=== PATIENT | female | born 1970 | race Caucasian/White ===

== ENCOUNTER 2018-01-09 20:34 | Emergency (ER) | payer MEDICAID ==
[~2018-01-09] VITALS: Ht 167.6 cm; Wt 107.0 kg
[2018-01-09 21:24] VITALS: Ht 167.6 cm; Wt 107.0 kg
[2018-01-09 23:28] LABS: CALCIUM 9.5 mg/dL (8.5-10.1); CARBON DIOXIDE 29.2 mmol/L (21-32); CREATININE SERUM 0.8 mg/dL (0.6-1.0); GFR1 > 60 mL/min; GLUCOSE SERUM 133 mg/dL (74-106); POTASSIUM SERUM 4.2 mmol/L (3.5-5.1); SODIUM SERUM 142 mmol/L (136-145)
[2018-01-09 23:29] LABS: BASOPHIL % 0.4 % (0-2); PLATELET COUNT 359 x10^3mcL (130-400)
[2018-01-09 23:30] LABS: RED CELL DISTRIBUTION WIDTH 14.6 % (11.5-14.5)
[2018-01-09 23:39] LABS: CHLORIDE SERUM 104 mmol/L (98-107)
[2018-01-10 00:58] VITALS: BP 115/72
== END 2018-01-10 00:58 | disposition home or self-care (01) ==
LOC: ED 20:34
PROVIDERS: Emergency Medicine
DX: R55 Syncope and collapse (principal); S09.90XA Unspecified injury of head, initial encounter; M25.521 Pain in right elbow; N39.0 Urinary tract infection, site not specified; J45.909 Unspecified asthma, uncomplicated; E11.9 Type 2 diabetes mellitus without complications; E03.9 Hypothyroidism, unspecified; Z88.8 Allergy status to other drugs, medicaments and biological substances; X58.XXXA Exposure to other specified factors, initial encounter; Y93.89 Activity, other specified; Y92.89 Other specified places as the place of occurrence of the external cause; Y99.8 Other external cause status
CPT/HCPCS: 36415

== ENCOUNTER 2018-09-21 17:11 | Emergency (ER) | payer SELFPAY ==
[~2018-09-21] VITALS: Ht 170.2 cm; Wt 108.4 kg
[2018-09-21 17:31] VITALS: Ht 170.2 cm; Wt 108.4 kg
[2018-09-21 18:53] VITALS: BP 144/97
== END 2018-09-21 18:53 | disposition home or self-care (01) ==
LOC: ED 17:11
DX: L03.313 Cellulitis of chest wall (principal); L91.8 Other hypertrophic disorders of the skin; J45.909 Unspecified asthma, uncomplicated; E11.9 Type 2 diabetes mellitus without complications; E03.9 Hypothyroidism, unspecified; Z88.8 Allergy status to other drugs, medicaments and biological substances

== ENCOUNTER 2018-12-05 00:01 | Inpatient (IN) | payer OTHER ==
[~2018-12-05] VITALS: Ht 165.1 cm; Wt 110.4 kg
[2018-12-05 00:22] VITALS: Ht 165.1 cm; Wt 110.4 kg
[2018-12-05 01:01] LABS: CALCIUM 8.3 mg/dL (8.5-10.1); CARBON DIOXIDE 29.4 mmol/L (21-32); CHLORIDE SERUM 104 mmol/L (98-107); CREATININE SERUM 0.8 mg/dL (0.6-1.0); GFR1 > 60 mL/min; GLUCOSE SERUM 184 mg/dL (74-106); POTASSIUM SERUM 3.4 mmol/L (3.5-5.1); SODIUM SERUM 139 mmol/L (136-145)
[2018-12-05 01:04] LABS: BASOPHIL % 0.7 % (0-2); PLATELET COUNT 297 x10^3mcL (130-400)
[2018-12-05 01:06] LABS: ALKALINE PHOSPHATASE 70 U/L (46-116); ALT/SGPT 43 U/L (14-59); AST/SGOT 13 U/L (15-37); BILIRUBIN TOTAL 0.11 mg/dL (0.20-1.00); TOTAL PROTEIN, SERUM 6.7 g/dL (6.4-8.2)
[2018-12-05 01:08] LABS: RED CELL DISTRIBUTION WIDTH 14.8 % (11.5-14.5)
[2018-12-05 01:09] LABS: ALBUMIN 2.9 g/dL (3.4-5.0)
[2018-12-05 01:13] LABS: T3 TOTAL 1.43 ng/mL
[2018-12-05 01:18] LABS: FREE T4 1.12 ng/dL (0.76-1.46); FREE THYROXINE INDEX 3.4 ug/dL (1.4-4.5)
[2018-12-05 06:35] VITALS: BP 121/58
[2018-12-05 09:30] VITALS: BP 112/46
[2018-12-05 13:00] VITALS: BP 117/57
[2018-12-05 17:42] LABS: BASOPHIL % 0.7 % (0-2); PLATELET COUNT 312 x10^3mcL (130-400)
[2018-12-05 17:45] LABS: RED CELL DISTRIBUTION WIDTH 15.3 % (11.5-14.5)
[2018-12-05 17:51] VITALS: BP 112/46
== END 2018-12-05 19:05 | disposition home or self-care (01) | DRG 761 ==
LOC: ED 00:01 → MU 05:24
PROVIDERS: Specialist; ADMIT Internal Medicine
DX: D25.9 Leiomyoma of uterus, unspecified (principal); N93.8 Other specified abnormal uterine and vaginal bleeding; J45.909 Unspecified asthma, uncomplicated; E03.9 Hypothyroidism, unspecified; D64.9 Anemia, unspecified; Z88.8 Allergy status to other drugs, medicaments and biological substances; E11.9 Type 2 diabetes mellitus without complications; E66.9 Obesity, unspecified
CPT/HCPCS: 84439; J7030; J7050; P9016

== ENCOUNTER 2019-02-26 13:39 | Emergency (ER) | payer OTHER ==
[~2019-02-26] VITALS: Ht 167.6 cm; Wt 109.3 kg
[2019-02-26 14:26] VITALS: Ht 167.6 cm; Wt 109.3 kg
[2019-02-26 18:04] VITALS: BP 138/74
== END 2019-02-26 18:04 | disposition home or self-care (01) ==
LOC: ED 13:39
DX: J02.9 Acute pharyngitis, unspecified (principal); E11.9 Type 2 diabetes mellitus without complications; D64.9 Anemia, unspecified; E03.9 Hypothyroidism, unspecified; Z98.890 Other specified postprocedural states; Z88.8 Allergy status to other drugs, medicaments and biological substances

== ENCOUNTER 2019-08-26 08:13 | Emergency (ER) | payer OTHER ==
[~2019-08-26] VITALS: Ht 170.2 cm; Wt 104.3 kg
[2019-08-26 08:16] VITALS: Ht 170.2 cm; Wt 104.3 kg
[2019-08-26 08:51] LABS: BASOPHIL % 0.9 % (0-2)
[2019-08-26 09:03] LABS: CALCIUM 8.8 mg/dL (8.5-10.1); CARBON DIOXIDE 26.2 mmol/L (21-32); CHLORIDE SERUM 105 mmol/L (98-107); CREATININE SERUM 0.7 mg/dL (0.6-1.0); GFR1 > 60 mL/min; GLUCOSE SERUM 122 mg/dL (74-106); POTASSIUM SERUM 4.1 mmol/L (3.5-5.1); SODIUM SERUM 139 mmol/L (136-145)
[2019-08-26 09:04] LABS: PLATELET COUNT 305 x10^3mcL (130-400); RED CELL DISTRIBUTION WIDTH 14.4 % (11.5-14.5)
[2019-08-26 09:08] LABS: ALBUMIN 3.5 g/dL (3.4-5.0); ALKALINE PHOSPHATASE 84 U/L (46-116); ALT/SGPT 23 U/L (14-59); AST/SGOT 16 U/L (15-37); BILIRUBIN TOTAL 0.3 mg/dL (0.20-1.00); CHOLESTEROL 199 mg/dL (<200); PHOSPHOROUS 3.5 mg/dL (2.5-4.9); TOTAL PROTEIN, SERUM 7.9 g/dL (6.4-8.2); URIC ACID 5.2 mg/dL (2.6-6.0)
[2019-08-26 09:09] LABS: HDL CHOLESTEROL 34 mg/dL (40-60)
[2019-08-26 11:00] VITALS: BP 121/60
[2019-08-26 13:16] LABS: rbc morphology (normal/abnorm) ABNORMAL (NORMAL)
== END 2019-08-26 11:00 | disposition home or self-care (01) ==
LOC: ED 08:13
PROVIDERS: Emergency Medicine
DX: R07.89 Other chest pain (principal); F41.9 Anxiety disorder, unspecified; J45.909 Unspecified asthma, uncomplicated; E11.9 Type 2 diabetes mellitus without complications; E03.9 Hypothyroidism, unspecified; Z88.8 Allergy status to other drugs, medicaments and biological substances; Z86.2 Personal history of diseases of the blood and blood-forming organs and certain disorders involving the immune mechanism
CPT/HCPCS: 36415; J1885; Q0092

== ENCOUNTER 2020-07-03 09:37 | Emergency (ER) | payer MEDICAID ==
[~2020-07-03] VITALS: Ht 170.2 cm; Wt 92.1 kg
[2020-07-03 09:44] VITALS: Ht 170.2 cm; Wt 92.1 kg
[2020-07-03 10:52] LABS: BASOPHIL % 1.4 % (0-2); PLATELET COUNT 269 x10^3mcL (130-400)
[2020-07-03 11:04] LABS: CARBON DIOXIDE 28.7 mmol/L (21-32); CHLORIDE SERUM 107 mmol/L (98-107); CREATININE SERUM 0.7 mg/dL (0.6-1.0); GFR1 > 60 mL/min; GLUCOSE SERUM 106 mg/dL (74-106); POTASSIUM SERUM 4.4 mmol/L (3.5-5.1); SODIUM SERUM 140 mmol/L (136-145)
[2020-07-03 11:08] LABS: RED CELL DISTRIBUTION WIDTH 16.7 % (11.5-14.5)
[2020-07-03 11:09] LABS: ALBUMIN 3.6 g/dL (3.4-5.0); ALKALINE PHOSPHATASE 75 U/L (46-116); ALT/SGPT 16 U/L (14-59); AST/SGOT 15 U/L (15-37); BILIRUBIN TOTAL 0.3 mg/dL (0.20-1.00); TOTAL PROTEIN, SERUM 7.7 g/dL (6.4-8.2)
[2020-07-03 12:25] VITALS: BP 111/43
== END 2020-07-03 12:25 | disposition home or self-care (01) ==
LOC: ED 09:37
PROVIDERS: Emergency Medicine
DX: R07.89 Other chest pain (principal); J45.909 Unspecified asthma, uncomplicated; E11.9 Type 2 diabetes mellitus without complications; E03.9 Hypothyroidism, unspecified; Z98.890 Other specified postprocedural states; Z86.2 Personal history of diseases of the blood and blood-forming organs and certain disorders involving the immune mechanism
CPT/HCPCS: Q0092